=== PATIENT | female | born 1970 | race American Indian/Alaskan Native ===

== ENCOUNTER 2016-05-19 11:19 | Day surgery (SDC) | payer OTHER ==
--- NOTE | 2016-05-19 11:48 | CP.SDSHP ---
Same Day Surgery H & P - History Proposed Procedure: colonoscopy - Date & Time Date: 05/19/16 Time: 11:48 Short Stay Discharge - Short Stay Discharge Admitting Diagnosis/Reason for Visit: BLOOD IN STOOL / CHANGE IN BOWEL HABITS Disposition: HOME/ ROUTINE
[2016-05-19 12:10] VITALS: BMI 26.8
[2016-05-19 12:36] VITALS: O2SAT 100
[2016-05-19] MEDS ORDERED: Propofol 10 mg/ml Inj (20 ML) ONE ×2 (12:46→13:19)
[2016-05-19] MEDS ORDERED: Lactated Ringer's 1,000 ML IV SCH (13:45)
[2016-05-19 13:53] VITALS: TEMP 97.4
[2016-05-19 14:55] VITALS: BP 118/74; PULSE 88; RESP 18
== END 2016-05-19 14:54 | disposition home or self-care (01) ==
LOC: C.ENDO 11:19
PROVIDERS: ATTEND Colon & Rectal Surgery
DX: K52.9 Noninfective gastroenteritis and colitis, unspecified (principal); K92.1 Melena
CPT/HCPCS: 45380; 84703; 87045; 87177; 87209; 87230; 88305; J2704; J3010; J7120

== ENCOUNTER 2016-07-21 09:45 | Day surgery (SDC) | payer OTHER ==
--- NOTE | 2016-07-21 11:04 | CP.SDSHP ---
Same Day Surgery H & P - History Proposed Procedure: hemorrhoidectomy - Previous Medical/Surgical History Previous Surgical History: Csection x2 - Allergies Allergies: Allergies nasal cannula Allergy (Uncoded 07/21/16 10:06) ITCHING - Physical Exam Vital Signs: Vital Signs 07/21/16 09:55 Temperature 97.9 F Pulse Rate 85 Respiratory 20 Rate Blood Pressure 128/87 O2 Sat by Pulse 100 Oximetry - Date & Time Date: 07/21/16 Time: 11:03 Short Stay Discharge - Short Stay Discharge Admitting Diagnosis/Reason for Visit: ANAL PROLAPSE / RESIDUAL HEMORRHOIDS Disposition: HOME/ ROUTINE
[2016-07-21] MEDS ORDERED: Lactated Ringer's 1,000 ML IV ONE ×2 (11:22)
[2016-07-21] MEDS ORDERED: Midazolam 2 MG/2 ML VIAL ONE (11:40)
[2016-07-21] MEDS ORDERED: Propofol 10 mg/ml Inj (20 ML) ONE (11:40)
[2016-07-21] MEDS ORDERED: Lidocaine 1% Inj (20ml) ONE (11:47)
[2016-07-21] MEDS ORDERED: Ciprofloxacin 400mg/200ml D5W 400 MG/200 ML BAG IVPB ONE (11:47)
[2016-07-21] MEDS ORDERED: Lidocaine 2% w Epi 1:100,000 Inj IJ ONE (11:47)
[2016-07-21] MEDS ORDERED: Bupivacaine-Epi 0.5%-1:200,000 PF Inj ONE (11:49)
--- NOTE | 2016-07-21 12:46 | PCM.SURG1 ---
Surgeon's Initial Post Op Note - Surgeon's Notes Surgeon: Dr. Lopez Copy Lathe Operator: Dr. Calix, PGY-2 Type of Anesthesia: General LMA Pre-Operative Diagnosis: Internal/External Hemorrhoids Operative Findings: See operative report Post-Operative Diagnosis: Same Operation Performed: Internal/External Hemmorhoidectomy Specimen/Specimens Removed: Hemmorhoids Estimated Blood Loss: EBL {In ML}: 10 Blood Products Given: N/A Drains Used: No Drains Post-Op Condition: Good Date of Surgery/Procedure: 07/21/16 Time of Surgery/Procedure: 12:47
[2016-07-21] MEDS ORDERED: HYDROmorphone 0.5 mg/0.5 ml ISec IVP PRN (12:53)
[2016-07-21] MEDS ORDERED: Oxycodone/Acetaminophen 5/325 mg Tab PO PRN (12:53)
[2016-07-21] MEDS ORDERED: Lactated Ringer's 1,000 ML IV SCH (13:00)
--- NOTE | 2016-07-21 14:59 | OP ---
PROCEDURE DATE: 07/21/2016 SURGEON: Dr. Lopez. WELDER FITTER: Dr. Calix. PREOPERATIVE DIAGNOSIS: Internal and external hemorrhoids with prolapse. POSTOPERATIVE DIAGNOSIS: Internal and external hemorrhoids with prolapse. PROCEDURE: Hemorrhoidectomy, internal and external. FINDINGS: This is a 45-year-old who presented with a history of rectal bleeding. She was noted to h ave prolapsing hemorrhoids. The largest was in the right posterior location and large hemorrhoid in the left lateral location and moderate in the right anterior. PROCEDURE: After satisfactory general anesthesia, the patient's perianal tissue was infiltrated with Marcaine 0.5% with epinephrine about 5 mL. A large Pyle retractor in placed, the large hemorrho idal complex in the right posterior location was excised and then closed with a running 3-0 chromic s uture, advancing the mucosa and tacking it superficially. The internal sphincter muscle is ____ prol apsed and interrupted to the skin level. The hemorrhoids in the left lateral location were excised a nd closed with running 3-0 chromic gut suture. The right anterior hemorrhoid was excised and sutured with 3-0 chromic gut suture. The anal canal was ____ and hemostasis was complete. ____ was inserte d and she was transferred to recovery room in stable condition. Estimated blood loss about 10 mL. Annie Lopez MD cc: [id number] TT: 07/21/2016 14:58:30 tn
[2016-07-21 15:01] VITALS: TEMP 96.9
[2016-07-21 16:03] VITALS: RESP 18; O2SAT 99
[2016-07-21 17:41] VITALS: BP 118/69; PULSE 73
== END 2016-07-21 17:00 | disposition home or self-care (01) ==
LOC: C.SDS 09:45
PROVIDERS: ATTEND Colon & Rectal Surgery
DX: K64.8 Other hemorrhoids (principal); K64.4 Residual hemorrhoidal skin tags; K62.2 Anal prolapse
CPT/HCPCS: 46255; 88304; J0744; J1170; J2001; J2250; J2405; J2704; J2765; J3010; J7120

== ENCOUNTER 2018-06-27 13:44 | Outpatient (CLI) | payer OTHER | END 2018-06-27 13:45 | disposition home or self-care (01) | LOC: C.MAMMO 13:44 ==